=== PATIENT | male | born 1935 | race Hispanic/Latino ===

== ENCOUNTER 2017-06-20 08:41 | Day surgery (SDC) | payer MEDICARE, BC ==
[2017-06-17 10:15] VITALS: BMI 23.6
[2017-06-20 09:14] LABS: BASO # 0.03 K/mm3 (0.0-2.0); BASO % 0.4 % (0.0-3.0); EOS # 0.4 (0.0-0.7); EOS % 5.5 % (1.5-5.0); GRAN # 3.64 (1.4-6.5); GRAN % 54.3 % (50.0-68.0); HEMOGLOBIN 13.7 g/dL (14.0-18.0); LYMPH # 2.1 (1.2-3.4); LYMPH % 30.7 % (22.0-35.0); MEAN CELL VOLUME 97.6 fl (80.0-105.0); MEAN CORPUSCULAR HEMOGLOBIN 32.5 pg (25.0-35.0); MEAN CORPUSCULAR HGB CONC 33.3 g/dl (31.0-37.0); MEAN PLATELET VOLUME 9.5 fl (7.0-11.0); MONO # 0.6 (0.1-0.6); MONO % 9.1 % (1.0-6.0); RBC 4.21 10^6/uL (3.5-6.1); RED CELL DISTRIBUTION WIDTH 13.7 % (11.5-14.5); WHITE BLOOD COUNT 6.7 10^3/ul (4.5-11.0)
[2017-06-20 09:18] LABS: INR 0.99 (0.93-1.08); PARTIAL THROMBOPLASTIN TIME 30.2 Seconds (25.1-36.5); PROTHROMBIN TIME 11.4 SECONDS (9.4-12.5)
[2017-06-20 09:20] LABS: BLOOD UREA NITROGEN 20 mg/dL (7-21); CALCIUM 9.8 mg/dL (8.4-10.5); GFR AFRICAN-AMERICAN > 60; GFR NON-AFRICAN AMERICAN 58
[2017-06-20] MEDS ORDERED: Oxycodone/Acetaminophen 5/325 mg Tab PO PRN (12:18)
[2017-06-20] MEDS ORDERED: Midazolam 2 MG/2 ML VIAL ONE ×2 (12:24→12:29)
[2017-06-20] MEDS ORDERED: HEPARIN SODIUM/NS 2,000 ML IV ONE (12:29)
[2017-06-20] MEDS ORDERED: Lidocaine 2% Inj (20ml) ONE (12:29)
[2017-06-20] MEDS ORDERED: Sodium Chloride 0.45% 1,000 ML IV SCH (12:30)
[2017-06-20 12:52] VITALS: O2SAT 98
[2017-06-20 13:12] VITALS: RESP 18
[2017-06-20 14:18] VITALS: BP 125/83; PULSE 53; TEMP 97.6
--- NOTE | 2017-06-20 20:25 | VASCULAR ---
PROCEDURE: Removal of tunneled right internal jugular venous access port. CLINICAL HISTORY: B-cell lymphoma. Completed chemotherapy. Remove port. PHYSICIAN(S): John Ramachandran M.D. TECHNIQUE: The relative risks and indications of the procedure were explained to the patient and consent obtained. The patient was placed supine on the arteriogram table and the right neck and chest prepped and draped usual sterile fashion. Conscious sedation and monitoring were provided throughout the procedure by a nurse. 1% Xylocaine was used to anesthetize the skin and soft tissues at the port. A 4 cm incision was made. The port was bluntly dissected and removed. The catheter was removed under fluoroscopic guidance. No retained catheter fragments were seen. The pocket was lavaged with normal saline. The pocket was closed in 2 layers. The patient tolerated the procedure well. IMPRESSION: 1. Removal of tunneled right internal jugular venous access port.
== END 2017-06-20 14:46 | disposition home or self-care (01) ==
LOC: SDSVAS 08:41 → SDS 08:41 → SDSVAS 14:46
PROVIDERS: ATTEND Radiology Vascular & Interventional Radiology
DX: Z45.2 Encounter for adjustment and management of vascular access device (principal); C85.10 Unspecified B-cell lymphoma, unspecified site
CPT/HCPCS: 36415; 36590; 80048; 85025; 85610; 85730; 99152; 99153; J1644; J2250; J2405; J3010; J7030 ×2

== ENCOUNTER 2018-01-07 07:09 | Day surgery (SDC) | payer MEDICARE, BC ==
[2017-06-17 10:15] VITALS: BMI 23.6
[2018-01-07] MEDS ORDERED: Propofol 10 mg/ml Inj (20 ML) ONE (09:27)
[2018-01-07] MEDS ORDERED: Sodium Chloride 0.9% 1,000 ML IV SCH (10:15)
[2018-01-07 10:37] VITALS: PULSE 61
[2018-01-07 10:46] VITALS: BP 148/69; RESP 17; TEMP 97.7; O2SAT 95
== END 2018-01-07 11:43 | disposition home or self-care (01) ==
LOC: ENDO 07:09
PROVIDERS: ATTEND Internal Medicine Gastroenterology
DX: K57.30 Diverticulosis of large intestine without perforation or abscess without bleeding (principal); K64.8 Other hemorrhoids; K63.89 Other specified diseases of intestine
CPT/HCPCS: 45378; 82948; J2704; J7030; J7040

== ENCOUNTER 2018-07-14 06:05 | Outpatient (CLI) | payer MEDICARE, BC | END 2018-07-14 06:06 | disposition home or self-care (01) | LOC: PET-BROA 06:05 ==

== ENCOUNTER 2018-08-19 12:55 | Outpatient (CLI) | payer MEDICARE, BC | END 2018-08-19 12:56 | disposition home or self-care (01) | LOC: LAB 12:55 ==